=== PATIENT | male | born 1985 | race Caucasian/White ===

== ENCOUNTER 2020-08-13 18:26 | Emergency (ER) | payer SELFPAY ==
[2020-08-13] MEDS ORDERED: Sodium Chloride 0.9% 10 ML Syringe FLUSH PRN (18:50)
[2020-08-13] MEDS ORDERED: HYDROmorphone 1 MG/ML Syringe IVPUSH ONE (18:52)
--- NOTE | 2020-08-13 18:57 | EDM.PDOC ---
ED HPI GENERAL MEDICAL PROBLEM - General Source of Information: Reports: Patient History Limitations: Reports: No Limitations - History of Present Illness Onset: Sudden Duration: Minutes: Location: Reports: Chest, Abdomen Quality: Reports: Sharp Severity: Severe Improves with: Reports: None Worsens with: Reports: None Context: Reports: Trauma Associated Symptoms: Reports: Chest Pain. Denies: Cough, Fever/Chills, Headaches, Nausea/Vomiting, Shortness of Breath Left Thoracic Pain Score (Numeric/FACES): 10 <John Chadwick - Last Filed: 08/13/20 18:52> <Yuri Vee - Last Filed: 08/14/20 00:41> - General Chief Complaint: Trauma Stated Complaint: chest and back injury Time Seen by Provider: 08/13/20 18:47 - History of Present Illness INITIAL COMMENTS - FREE TEXT/NARRATIVE: The patient presents with left sided chest pain. He was working on a 200 pound transmission and it fell on his left chest and left upper abdomen. He has no nausea or vomiting. He has no other injuries. He has a benign brain tumor. He also has a history of asthma. (John Chadwick) - Related Data Allergies Allergy/AdvReac Type Severity Reaction Status Date / Time amoxicillin Allergy Severe Nausea and Verified 08/13/20 19:05 Vomiting gabapentin Allergy Severe Irritabilit Verified 08/13/20 19:05 y Penicillins Allergy Severe Nausea and Verified 08/13/20 19:05 Vomiting pregabalin [From Lyrica] Allergy Severe Irritabilit Verified 08/13/20 19:05 y Home Meds: Home Meds oxyCODONE HCl/Acetaminophen [Percocet 5-325 mg Tablet] 1 - 2 each PO Q4H PRN #18 tablet 08/13/20 [Rx] Past Medical History Neurological History: Reports: Other (See Below) Other Neuro History: spinal stenosis, degenerative disc Endocrine/Metabolic History: Reports: Other (See Below) Other Endocrine/Metabolic History: pinial tumor - Past Surgical History HEENT Surgical History: Reports: Adenoidectomy, Oral Surgery, Tonsillectomy Musculoskeletal Surgical History: Reports: Other (See Below) Other Musculoskeletal Surgeries/Procedures:: bilateral ulnar nerve release <John Chadwick - Last Filed: 08/13/20 18:52> Social & Family History - Tobacco Use Tobacco Use Status *Q: Never Tobacco User Second Hand Smoke Exposure: Yes - Caffeine Use Caffeine Use: Reports: Coffee - Recreational Drug Use Recreational Drug Use: No <John Chadwick - Last Filed: 08/13/20 18:52> Review of Systems - Review of Systems Review Of Systems: See Below Constitutional: Reports: No Symptoms Eyes: Reports: No Symptoms Ears: Reports: No Symptoms Nose: Reports: No Symptoms Mouth/Throat: Reports: No Symptoms Respiratory: Reports: No Symptoms Cardiovascular: Reports: Chest Pain GI/Abdominal: Reports: Abdominal Pain Genitourinary: Reports: No Symptoms Musculoskeletal: Reports: No Symptoms <John Chadwick - Last Filed: 08/13/20 18:52> ED EXAM, GENERAL - Physical Exam Exam: See Below Exam Limited By: No Limitations General Appearance: Alert, No Apparent Distress Ears: Normal External Exam Nose: Normal Inspection Head: Atraumatic, Normocephalic Neck: Normal Inspection Respiratory/Chest: No Respiratory Distress, Lungs Clear, Normal Breath Sounds, Other (Severe pain to the left lateral chest) Cardiovascular: Regular Rate, Rhythm, No Edema, No Murmur GI/Abdominal: Soft, No Organomegaly, No Mass, Tender (Severe tenderness to the left upper abdomen) Back Exam: Normal Inspection Extremities: Normal Inspection <John Chadwick - Last Filed: 08/13/20 18:52> #1 Interpretation EKG Date: 08/13/20 Time: 18:51 Rhythm: NSR Rate (Beats/Min): 69 Adams: Normal P-Wave: Present QRS: Other (Early R wave transition may be due to lead placement as its only evident in V2. Incomplete right bundle branch block pattern.) ST-T: Other (Diffuse early repolarization pattern with no signs of ischemia.) QT: Normal <Yuri Vee - Last Filed: 08/14/20 00:41> #1 Interpretation EKG Interpretation Comments: Borderline ECG (Yuri Vee) Course <John Chadwick - Last Filed: 08/13/20 18:52> <Yuri Vee - Last Filed: 08/14/20 00:41> - Vital Signs Last Recorded V/S: Last Vital Signs Temp 36.4 C 08/13/20 20:44 Pulse 74 08/13/20 20:44 Resp 16 08/13/20 20:44 BP 115/61 08/13/20 20:44 Pulse Ox 98 08/13/20 20:44 - Orders/Labs/Meds Orders: Active Orders 24 hr Category Date Time Status Chest Abdomen Pelvis w Cont [CT] Timed Exams 08/13/20 18:50 Taken Peripheral IV Insertion Adult [OM.PC] Stat Oth 08/13/20 18:50 Ordered Labs: Laboratory Tests 08/13/20 08/13/20 Range/Units 19:15 19:15 WBC 10.34 H (4.23-9.07) K/mm3 RBC 4.87 (4.63-6.08) M/mm3 Hgb 14.1 (13.7-17.5) gm/dl Hct 43.2 (40.1-51.0) % MCV 88.7 (79.0-92.2) fl MCH 29.0 (25.7-32.2) pg MCHC 32.6 (32.2-35.5) g/dl RDW Std Deviation 43.0 (35.1-43.9) fL Plt Count 311 (163-337) K/mm3 MPV 10.4 (9.4-12.3) fl Neut % (Auto) 56.9 (34.0-67.9) % Lymph % (Auto) 29.4 (21.8-53.1) % Villalba % (Auto) 10.8 (5.3-12.2) % Eos % (Auto) 2.4 (0.8-7.0) Baso % (Auto) 0.4 (0.1-1.2) % Neut # (Auto) 5.88 H (1.78-5.38) K/mm3 Lymph # (Auto) 3.04 (1.32-3.57) K/mm3 Villalba # (Auto) 1.12 H (0.30-0.82) K/mm3 Eos # (Auto) 0.25 (0.04-0.54) K/mm3 Baso # (Auto) 0.04 (0.01-0.08) K/mm3 Manual Slide Review Normal smear Sodium 138 (136-145) mEq/L Potassium 3.6 (3.5-5.1) mEq/L Chloride 104 (98-107) mEq/L Carbon Dioxide 26 (21-32) mEq/L Anion Gap 11.6 (5-15) BUN 19 H (7-18) mg/dL Creatinine 1.1 (0.7-1.3) mg/dL Est Cr Clr Drug Dosing 92.84 mL/min Estimated GFR (MDRD) > 60 (>60) mL/min BUN/Creatinine Ratio 17.3 (14-18) Glucose 113 H (74-106) mg/dL Calcium 9.1 (8.5-10.1) mg/dL Total Bilirubin 0.2 (0.2-1.0) mg/dL AST 16 (15-37) U/L ALT 26 (16-63) U/L Alkaline Phosphatase 83 (46-116) U/L Total Protein 7.2 (6.4-8.2) g/dl Albumin 3.9 (3.4-5.0) g/dl Globulin 3.3 gm/dL Albumin/Globulin Ratio 1.2 (1-2) Lipase 68 L (73-393) U/L Meds: Medications Discontinued Medications Generic Name Dose Route Start Last Admin Trade Name Freq PRN Reason Stop Dose Admin Hydromorphone HCl 1 mg 08/13/20 18:52 08/13/20 19:16 Dilaudid IVPUSH 08/13/20 18:53 1 mg ONETIME ONE Administration Lactated Ringer's 1,000 mls @ 125 mls/hr 08/13/20 19:00 08/13/20 19:20 Ringers, Lactated IV 125 mls/hr ASDIRECTED JONATAN Administration Iopamidol 50 ml 08/13/20 19:58 08/13/20 20:01 Isovue-300 (61%) IVPUSH 08/13/20 19:59 50 ml ONETIME ONE Administration Iopamidol 100 ml 08/13/20 20:00 08/13/20 20:02 Isovue-300 (61%) IVPUSH 08/13/20 20:01 100 ml ONETIME ONE Administration Ondansetron HCl 4 mg 08/13/20 19:12 08/13/20 19:16 Zofran IVPUSH 08/13/20 19:13 4 mg ONETIME ONE Administration Sodium Chloride 10 ml 08/13/20 18:50 08/13/20 19:10 Saline Flush FLUSH 10 ml ASDIRECTED PRN Administration Keep Vein Open Sodium Chloride 10 ml 08/13/20 20:00 08/13/20 20:02 Saline Flush FLUSH 10 ml BOLUS JONATAN Administration - Re-Assessments/Exams Free Text/Narrative Re-Assessment/Exam: 08/13/20 18:56 I ordered an IV LR at 125mL/hr, dilaudid 1mg IV, labs and CT of his chest, abdomen and pelvis. It is change of shift Dr Vee to take over. (John Chadwick) 08/13/20 19:14 care has been assumed from Dr. Cavazos at change of shift. IV has just been started. Zofran 4 mg IV has been ordered for nausea relief prior to Dilaudid IV infusion ordered by Dr. Chadwick. Patient has yet to go to CT. 08/13/20 20:08 CT chest abdomen pelvis has been performed with IV contrast. CT chest reveals no evidence of pneumothorax pleural effusion or pulmonary contusion. No rib fractures identified. Cardiac silhouette is normal as are the great vessels. Diaphragm appears intact. CT of the abdomen reveals normal- appearing liver and gallbladder with no calcified gallstones. Pancreas appears normal spleen appears normal both kidneys are within normal limits showing no evidence of obstruction. Evaluation of thoracic spine and upper lumbar spine reveals no spinal fractures. Pelvis is intact. Bladder is intact. 08/13/20 20:[address] chest abdomen pelvis with IV contrast is now available. Bibasilar atelectasis appreciated small patchy infiltrate in the lingular lobe may represent atelectasis or scarring. Pleural space is unremarkable with no pneumothorax no pleural effusion. Heart shows no cardiomegaly no pericardial effusion. Aorta unremarkable with no aortic aneurysm. Lymph nodes unremarkable no enlarged lymph nodes. Bones and joints unremarkable with no acute fracture. Soft tissues are unremarkable. CT of the abdomen shows normal liver no calcified gallstones in the gallbladder. Pancreas appears normal with no ductal dilatation. No splenomegaly or injury evident. Adrenal glands are normal with no mass. Punctate nonobstructive calculi within both kidneys. Stomach and bowel appear unremarkable no obstruction no mucosal thickening. Appendix no evidence of appendicitis. Intraperitoneal space unremarkable no free air no significant fluid collections. Vasculature is unremarkable. Lymph nodes unremarkable. Urinary bladder unremarkable as visualized. Reproductive the prostate gland demonstrates mild hyperplasia. Bones and joints unremarkable with no acute fracture. There is a small umbilical hernia with no evidence of incarceration. 08/13/20 20:26 I have discussed the findings of the CT exam with the patient. He still has mild splinting respirations and complaining of left upper posterior back shoulder pain. He believes he wrenched his back trying to push the transmission off of himself and away from him when it was falling. Patient has pain over his left lateral lower ribs without palpable fracture. Mild erythema over ribs 9 and 10 laterally. Good air entry to lung field on auscultation. Plan patient will be discharged to home. Plan will be to prescribe Percocet tabs 5/325 mg x 18 tablets 1 or 2 every 4-6 hours needed for pain relief over the next 2 to 3 days. This will be to be dispensed to the [employer] machine. (Yuri Vee) Departure <John Chadwick - Last Filed: 08/13/20 18:52> - Departure Time of Disposition: 20:50 Condition: Fair - Discharge Information *PRESCRIPTION DRUG MONITORING PROGRAM REVIEWED*: Not Applicable *COPY OF PRESCRIPTION DRUG MONITORING REPORT IN PATIENT CHERRI: Not Applicable <Yuri Vee - Last Filed: 08/14/20 00:41> - Departure Disposition: Home, Self-Care 01 Clinical Impression: Contusion of chest wall with intact skin, Strain of thoracic back region - Discharge Information Prescriptions: oxyCODONE HCl/Acetaminophen [Percocet 5-325 mg Tablet] 1 - 2 each PO Q4H PRN #18 tablet PRN Reason: pain relief. Instructions: Contusion, [id number] Referrals: PCP,None [Primary Care Provider] - Forms: ED Department Discharge Additional Instructions: Evaluation in the emergency room today in regards to injuries to the left lateral chest wall and upper abdomen left side from a 200 pound transmission that fell on you while changing it out tonight. Acute strain of left upper back and posterior shoulder area from trying to avoid getting crushed. CT scan of the chest abdomen pelvis has been performed with IV contrast and it it does not reveal any broken ribs or blunt trauma to the underlying lung. Organs in the left upper abdomen are also normal i.e. no injury to the spleen kidney liver or intestine identified. Expect increased stiffness and soreness to develop over the next 24 to 48 hours with gradual improvement over the next 7 to 8 days. S uggest Motrin 600 mg every 6-8 hours as necessary for pain relief. Percocet tabs 5/325 mg 1 or 2 every 4-6 hours for pain over the next 2 to 3 days. Activity as tolerated. Follow-up if not completely back to normal in 10 days time with your primary care provider. Sepsis Event Note (ED) - Evaluation Sepsis Screening Result: No Definite Risk <John Chadwick - Last Filed: 08/13/20 18:52> - Focused Exam Vital Signs: Vital Signs Temp Pulse Resp BP Pulse Ox 08/13/20 20:44 36.4 C 74 16 115/61 98 08/13/20 19:05 69 18 134/85 98 08/13/20 18:41 36.8 C 80 16 129/85 98
[2020-08-13] MEDS ORDERED: Lactated Ringers 1,000 ML IV SCH (19:00)
[2020-08-13] MEDS ORDERED: Ondansetron 4 MG/2 ML SDV IVPUSH ONE (19:12)
[2020-08-13] MEDS ORDERED: Iopamidol 612 MG/ML 50 ML SDV IVPUSH ONE (19:58)
[2020-08-13] MEDS ORDERED: Iopamidol 612 MG/ML 100 ML Bottle IVPUSH ONE (20:00)
[2020-08-13] MEDS ORDERED: Sodium Chloride 0.9% 10 ML Syringe FLUSH SCH (20:00)
--- NOTE | 2020-08-15 11:44 | CT ---
CT chest Technique: Multiple axial sections through the chest were obtained. Intravenous contrast was utilized. Reconstructed coronal and sagittal images were obtained. Comparison: No prior chest imaging is available. Findings: Thoracic aorta shows no aneurysm. Mediastinum and hilar regions show no adenopathy. No pericardial thickening is appreciated. Mild atelectasis is seen posteriorly within both lung bases. Minimal density within the lingula is noted most likely due to atelectasis or scarring. No acute parenchymal change is appreciated. Bone window settings were reviewed which show nothing acute. Impression: 1. Nothing acute is definitely appreciated on CT study of the chest. Diagnostic code #1 I agree with preliminary report from [facility], finalized on 08/13/20, 9:[address] abdomen and pelvis Technique: Multiple axial sections were obtained from above the dome of the diaphragm inferiorly through the pubic symphysis. Intravenous contrast was utilized. No oral contrast has been given. Reconstructed coronal and sagittal images were obtained. Findings: Liver contains no focal parenchymal abnormality. Spleen appears within normal limits. Adrenal glands show no nodule. Pancreas shows no discrete abnormality. Gallbladder contains no calcified gallstones. Kidneys show symmetric contrast enhancement. No hydronephrosis or mass is seen. Small calcifications are seen within both kidneys compatible with minimal nonobstructing calculi. Ureters show no dilatation. Aorta shows no aneurysm. No retroperitoneal adenopathy or mesenteric abnormalities are seen. No pelvic mass or adenopathy is noted. Prostate gland shows minimal calcifications. Bone window settings were reviewed which show no acute osseous finding. Impression: 1. Small nonobstructing calculi within both kidneys. 2. Nothing acute is appreciated. Diagnostic code #2 I agree with preliminary report from [facility], finalized on 08/13/20, 9:17 PM HAM FACER
== END 2020-08-13 20:50 | disposition home or self-care (01) ==
LOC: JD.ED 18:26
DX: S29.012A Strain of muscle and tendon of back wall of thorax, initial encounter (principal); S20.212A Contusion of left front wall of thorax, initial encounter; Z88.0 Allergy status to penicillin; Z88.8 Allergy status to other drugs, medicaments and biological substances; Z77.22 Contact with and (suspected) exposure to environmental tobacco smoke (acute) (chronic); W20.8XXA Other cause of strike by thrown, projected or falling object, initial encounter
CPT/HCPCS: 36415; 71260; 74177; 80053; 83690; 85025; 93005; 96374; 96375; 99285; J1170; J2405; J7120; Q9967

== ENCOUNTER 2021-07-15 18:24 | Emergency (ER) | payer BC ==
[2021-07-15] MEDS ORDERED: Ondansetron 4 MG/2 ML SDV IVPUSH ONE (20:12)
[2021-07-15] MEDS ORDERED: Morphine 4 MG/ML Syringe IVPUSH ONE (20:12)
[2021-07-15] MEDS ORDERED: Sodium Chloride 0.9% 10 ML Syringe FLUSH ONE (20:41)
[2021-07-15] MEDS ORDERED: Iopamidol 612 MG/ML 100 ML Bottle IVPUSH ONE (20:41)
[2021-07-15] MEDS ORDERED: Iopamidol 612 MG/ML 50 ML SDV IVPUSH ONE (20:41)
--- NOTE | 2021-07-15 20:51 | EDM.PDOC ---
ED HPI GENERAL MEDICAL PROBLEM - General Chief Complaint: Back Pain or Injury Stated Complaint: BACK INJURY Time Seen by Provider: 07/15/21 20:00 Source of Information: Reports: Patient History Limitations: Reports: No Limitations - History of Present Illness INITIAL COMMENTS - FREE TEXT/NARRATIVE: Patient is a 35-year-old male presented to the emergency room with complaint of back pain and groin pain. Patient states this started several hours ago. Patient was attempting to move in transport a large case that was extremely heavy. He felt sharp pain in his back and some radiation into the left groin. He states he believes he has a hernia in the left groin that he sometimes notices a bulge that he is able to massage back in. He also reports some shooting pain down the back of the left leg. He otherwise denies any saddle paresthesias, urinary/bowel incontinence. No interventions performed prior to arrival. Pain is improved with lying still. Denies any prior history of back surgeries or abdominal surgeries. Treatments TECHNICAL ENGINEER: Reports: Other (see below) Other Treatments TECHNICAL ENGINEER: none Back Pain Score (Numeric/FACES): 8 Left Lower Abdomen Pain Score (Numeric/FACES): 10 - Related Data Allergies Allergy/AdvReac Type Severity Reaction Status Date / Time amoxicillin Allergy Severe Nausea and Verified 08/13/20 19:05 Vomiting gabapentin Allergy Severe Irritabilit Verified 08/13/20 19:05 y Penicillins Allergy Severe Nausea and Verified 08/13/20 19:05 Vomiting pregabalin [From Lyrica] Allergy Severe Irritabilit Verified 08/13/20 19:05 y Home Meds: Home Meds . [No Known Home Meds] 07/15/21 [History] Past Medical History Neurological History: Reports: Other (See Below) Other Neuro History: spinal stenosis, degenerative disc Endocrine/Metabolic History: Reports: Other (See Below) Other Endocrine/Metabolic History: pinial tumor - Infectious Disease History Infectious Disease History: Reports: None - Past Surgical History HEENT Surgical History: Reports: Adenoidectomy, Oral Surgery, Tonsillectomy GI Surgical History: Reports: Hernia, Inguinal Musculoskeletal Surgical History: Reports: Other (See Below) Other Musculoskeletal Surgeries/Procedures:: bilateral ulnar nerve release Social & Family History - Tobacco Use Tobacco Use Status *Q: Never Tobacco User - Caffeine Use Caffeine Use: Reports: Coffee, Tea - Recreational Drug Use Recreational Drug Use: No ED ROS GENERAL - Review of Systems Review Of Systems: See Below Free Text/Narrative/Comment: In addition to that documented in the HPI above, the additional ROS was obtained: Constitutional: Denies fevers or chills Eyes: Denies vision changes ENMT: Denies sore throat CV: Denies chest pain Resp: Denies SOB GI: Denies vomiting or diarrhea : Denies painful urination MSK: Denies recent trauma Skin: Denies new rashes Neuro: Denies new numbness or tingling or weakness Endocrine: Denies unexpected weight loss Heme: Denies bleeding disorders ED EXAM, GI/ABD - Physical Exam Exam: See Below Text/Narrative:: I have reviewed the triage vital signs Const: Well nourished, well developed, appears stated age Eyes: Pupils Equal and reactive to light bilaterally, no conjunctival injection HENT: No signs of trauma or swelling, Neck supple without meningismus CV: Regular Rate Rhythm, Warm, well-perfused extremities RESP: Unlabored respiratory effort GI: soft, non-tender, non-distended, no masses. No palpable inguinal hernia. Skin is normal MSK: No gross deformities appreciated Skin: Warm, dry. No rashes Neuro: Alert, surgical supervisor II-XII grossly intact. Sensation and motor function of lower extremities intact. Psych: Appropriate mood and affect. Course - Vital Signs Last Recorded V/S: Last Vital Signs Temp 36.6 C 07/15/21 19:54 Pulse 61 07/15/21 19:54 Resp 20 07/15/21 19:54 BP 119/84 07/15/21 19:54 Pulse Ox 98 07/15/21 19:54 - Orders/Labs/Meds Orders: Active Orders 24 hr Category Date Time Status Abdomen Pelvis w Cont [CT] Stat Exams 07/15/21 20:12 Taken Labs: Laboratory Tests 07/15/21 07/15/21 07/15/21 Range/Units 20:20 20:20 20:40 WBC 9.88 H (4.23-9.07) K/mm3 RBC 4.89 (4.63-6.08) M/mm3 Hgb 14.5 (13.7-17.5) gm/dl Hct 43.0 (40.1-51.0) % MCV 87.9 (79.0-92.2) fl MCH 29.7 (25.7-32.2) pg MCHC 33.7 (32.2-35.5) g/dl RDW Std Deviation 40.5 (35.1-43.9) fL Plt Count 310 (163-337) K/mm3 MPV 10.3 (9.4-12.3) fl Neut % (Auto) 49.6 (34.0-67.9) % Lymph % (Auto) 35.9 (21.8-53.1) % Brooks % (Auto) 10.6 (5.3-12.2) % Eos % (Auto) 3.3 (0.8-7.0) Baso % (Auto) 0.4 (0.1-1.2) % Neut # (Auto) 4.89 (1.78-5.38) K/mm3 Lymph # (Auto) 3.55 (1.32-3.57) K/mm3 Brooks # (Auto) 1.05 H (0.30-0.82) K/mm3 Eos # (Auto) 0.33 (0.04-0.54) K/mm3 Baso # (Auto) 0.04 (0.01-0.08) K/mm3 Sodium 144 (136-145) mEq/L Potassium 4.7 (3.5-5.1) mEq/L Chloride 107 (98-107) mEq/L Carbon Dioxide 25 (21-32) mEq/L Anion Gap 16.7 H (5-15) BUN 22 H (7-18) mg/dL Creatinine 1.0 (0.7-1.3) mg/dL Est Cr Clr Drug Dosing 102.12 mL/min Estimated GFR (MDRD) > 60 (>60) mL/min BUN/Creatinine Ratio 22.0 H (14-18) Glucose 111 H (70-99) mg/dL Lactic Acid 0.4 (0.4-2.0) mmol/L Calcium 8.8 (8.5-10.1) mg/dL Total Bilirubin 0.3 (0.2-1.0) mg/dL AST 19 (15-37) U/L ALT 23 (16-63) U/L Alkaline Phosphatase 70 (46-116) U/L Total Protein 7.2 (6.4-8.2) g/dl Albumin 4.1 (3.4-5.0) g/dl Globulin 3.1 gm/dL Albumin/Globulin Ratio 1.3 (1-2) Meds: Medications Discontinued Medications Generic Name Dose Route Start Last Admin Trade Name Watson PRN Reason Stop Dose Admin Iopamidol 50 ml 07/15/21 20:41 07/15/21 20:42 Iopamidol 612 Mg/Ml 50 Ml Sdv IVPUSH 07/15/21 20:42 50 ml ONETIME ONE Administration Iopamidol 100 ml 07/15/21 20:41 07/15/21 20:42 Iopamidol 612 Mg/Ml 100 Ml Bottle IVPUSH 07/15/21 20:42 100 ml ONETIME ONE Administration Morphine Sulfate 4 mg 07/15/21 20:12 07/15/21 20:37 Morphine 4 Mg/Ml Syringe IVPUSH 07/15/21 20:13 4 mg ONETIME ONE Administration Ondansetron HCl 4 mg 07/15/21 20:12 07/15/21 20:37 Ondansetron 4 Mg/2 Ml Sdv IVPUSH 07/15/21 20:13 4 mg ONETIME ONE Administration Sodium Chloride 10 ml 07/15/21 20:41 07/15/21 20:42 Sodium Chloride 0.9% 10 Ml Syringe FLUSH 07/15/21 20:42 10 ml ONETIME ONE Administration Departure - Departure Time of Disposition: 21:59 Disposition: Home, Self-Care 01 Clinical Impression: Low back pain - Discharge Information Referrals: PCP,None [Primary Care Provider] - Forms: ED Department Discharge Sepsis Event Note (ED) - Focused Exam Vital Signs: Vital Signs Temp Pulse Resp BP Pulse Ox 07/15/21 19:54 36.6 C 61 20 119/84 98 - My Orders Last 24 Hours: My Active Orders 07/15/21 20:12 Abdomen Pelvis w Cont [CT] Stat - Assessment/Plan Last 24 Hours: My Active Orders 07/15/21 20:12 Abdomen Pelvis w Cont [CT] Stat Assessment:: Patient is a 35-year-old male presents emergency room with back pain and groin pain. Differential diagnosis considered for this patient include strangulated hernia, cauda equina syndrome, lumbar strain, kidney stone. Work-up in the emergency room was unremarkable. CT and laboratory studies were performed without significant abnormality. Patient did feel improvement was intravenous morphine. At this point, patient instructed that this pain is likely radicular in nature and related to lumbar strain. Patient will be discharged with outpatient follow-up. Return precautions discussed as usual. Patient agrees with plan of care.
--- NOTE | 2021-07-16 06:26 | CT ---
CT abdomen and pelvis Technique: Multiple axial sections were obtained from above the dome of the diaphragm inferiorly through the pubic symphysis. Intravenous contrast was utilized. Delayed images were also obtained to the bladder. Reconstructed coronal and sagittal images were obtained. Comparison: Prior CT abdomen and pelvis study of 08/13/20. Findings: Visualized lung bases show nothing acute. Liver contains no focal parenchymal abnormality. Gallbladder contains no calcified gallstones. Spleen size is normal. Adrenal glands show no nodule. Pancreas appears within normal limits. Kidneys show symmetric contrast enhancement with no hydronephrosis or mass. Contrast within the kidneys could hide previously noted renal calculi seen on prior study. Abdominal aorta shows no aneurysm. No retroperitoneal adenopathy or mesenteric abnormalities are seen. Appendix is seen which is normal. No pelvic mass or adenopathy is seen. Delayed images show contrast within the ureters and within the bladder. Bone window settings were reviewed which appear within normal limits for the patient's age. Impression: 1. Nothing acute is appreciated on CT study of the abdomen and pelvis. 2. Contrast within the kidneys could obscure renal calculi noted on previous CT study within both kidneys. Diagnostic code #1 I agree with preliminary report from [facility], finalized on 07/15/21, 9:59 PM APPLIED BEHAVIOR SPECIALIST, code 1
== END 2021-07-15 22:40 | disposition home or self-care (01) ==
LOC: JD.ED 18:24
DX: M54.50 Low back pain, unspecified (principal); Z88.0 Allergy status to penicillin; Z88.5 Allergy status to narcotic agent
CPT/HCPCS: 36415; 74177; 80053; 83605; 85025; 96374; 96375; 99284; J2270; J2405; Q9967